=== PATIENT | male | born 1955 | race Caucasian/White ===

== ENCOUNTER 2018-05-13 11:12 | Day surgery (SDC) | payer BC ==
[2018-05-09 15:00] VITALS: BMI 32.7
[2018-05-13] MEDS ORDERED: Propofol 10 mg/ml Inj (20 ML) ONE (13:43)
[2018-05-13] MEDS ORDERED: Etomidate 20 mg/10ml Inj IV ONE (13:44)
[2018-05-13] MEDS ORDERED: Sodium Chloride 0.9% 1,000 ML IV SCH (14:45)
[2018-05-13 17:29] VITALS: BP 114/66; PULSE 74; RESP 18; TEMP 97.5; O2SAT 95
== END 2018-05-13 16:30 | disposition home or self-care (01) ==
LOC: ENDO 11:12
PROVIDERS: ATTEND Internal Medicine Gastroenterology
DX: K21.0 Gastro-esophageal reflux disease with esophagitis (principal); K25.9 Gastric ulcer, unspecified as acute or chronic, without hemorrhage or perforation; K26.9 Duodenal ulcer, unspecified as acute or chronic, without hemorrhage or perforation; K31.9 Disease of stomach and duodenum, unspecified; K57.30 Diverticulosis of large intestine without perforation or abscess without bleeding; K64.8 Other hemorrhoids; Z86.010 Personal history of colon polyps
CPT/HCPCS: 43239; 45378; 82948; 88305; 88342; J2001; J2704; J7030; J7040